=== PATIENT | male | born 2000 | race African-American/Black ===

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

== ENCOUNTER 2021-01-19 23:31 | Emergency (ER) | payer OTHER ==
[2021-01-19 23:43] VITALS: BP 119/73; PULSE 88; RESP 20; TEMP 98
[2021-01-19] MEDS ORDERED: LIDOCAINE 1% INJ 10MG/ML (20 ML MDV) SQ ONE (23:50)
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
--- NOTE | 2021-01-20 00:38 | XR ---
EXAMINATION TYPE: XR finger LT DATE OF EXAM: 01/19/2021 COMPARISON: NONE HISTORY: Middle finger laceration TECHNIQUE: 3 views FINDINGS: There is some deformity in the soft tissues at the end of the little finger consistent with laceration. I see no fracture nor dislocation. Joint spaces are normal. I see no sign of a foreign b nancy. IMPRESSION: Soft tissue deformity. No fracture.
== END 2021-01-20 01:09 | disposition home or self-care (01) ==
LOC: EC 23:31
DX: S61.216A Laceration without foreign body of right little finger without damage to nail, initial encounter (principal); F31.9 Bipolar disorder, unspecified; F17.200 Nicotine dependence, unspecified, uncomplicated; F12.90 Cannabis use, unspecified, uncomplicated; W25.XXXA Contact with sharp glass, initial encounter
CPT/HCPCS: 12002; 99283

== ENCOUNTER → 2021-03-04 | Outpatient (CLI) | payer OTHER ==
--- NOTE | 2021-03-05 02:45 | MR ---
EXAMINATION TYPE: MR hand LT wo con DATE OF EXAM: 03/04/2021 COMPARISON: None HISTORY: Left hand pain, laceration to small and ring finger 1 year ago. Multiplanar multiecho imaging of the left hand without contrast. Metacarpals appear intact. The fingers appear intact. I see no bony destructive process. Joint spaces are fairly normal. The carpal bones are intact. Radiocarpal joint is anatomic. Intercarpal joint spa irene are fairly normal. There is no pathologic fluid collection. There is no evidence of a soft tissue mass. There is some thinning of the flexor tendon of the ring finger and to a lesser extent the little fing er. Flexor tendons of the thumb and index finger and middle finger appear intact. IMPRESSION: Significant thinning of the flexor tendons of the little finger and ring finger consistent with lacer ation probably some partial retraction. No fracture seen. No evidence of any arthritic disease.
== END | disposition home or self-care (01) ==
LOC: RADMRIMAIN 19:07
PROVIDERS: ATTEND Orthopaedic Surgery Hand Surgery
DX: M67.844 Other specified disorders of tendon, left hand (principal)

== ENCOUNTER 2021-05-11 10:17 | Day surgery (SDC) | payer OTHER ==
[2021-05-04 12:34] VITALS: BMI 22.3
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
[2021-05-11] MEDS ORDERED: ONDANSETRON 4 MG/2 ML VIAL ONE ×2 (10:38→11:05)
[2021-05-11] MEDS ORDERED: LACTATED RINGERS 1,000 ML IV ONE ×2 (10:45→12:36)
[2021-05-11] MEDS ORDERED: ONDANSETRON 4 MG/2 ML VIAL IVP ONE (10:45)
[2021-05-11] MEDS ORDERED: DEXAMETHASONE SOD PHOSPHATE 4 MG/ML 1 ML VIAL IVP ONE (10:45)
[2021-05-11] MEDS ORDERED: MIDAZOLAM 2 MG/2 ML VIAL IVP ONE (10:51)
[2021-05-11] MEDS ORDERED: PROPOFOL 10 MG/ML 20 ML VIAL IV ONE (11:05)
[2021-05-11] MEDS ORDERED: ROPIVACAINE 5 MG/ML 30 ML VIAL ONE (11:05)
[2021-05-11] MEDS ORDERED: fentaNYL (PF) 50 MCG/ML 2 ML AMP ONE (11:05)
[2021-05-11] MEDS ORDERED: PHENYLEPHRINE-0.9% NACL SYG 1,000 MCG/10 ML SYRINGE ONE (11:05)
[2021-05-11] MEDS ORDERED: ePHEDrine 50 MG/ML 1 ML AMP ONE (11:05)
[2021-05-11] MEDS ORDERED: LIDOCAINE 1% INJ 10MG/ML (20 ML MDV) ONE (11:05)
[2021-05-11] MEDS ORDERED: DEXAMETHASONE SOD PHOSPHATE 4 MG/ML 1 ML VIAL ONE (11:05)
[2021-05-11] MEDS ORDERED: MIDAZOLAM 2 MG/2 ML VIAL ONE (11:05)
[2021-05-11] MEDS ORDERED: HYDROmorphone (PF) 1 MG/ML ONE (11:05)
[2021-05-11] MEDS ORDERED: BACITRACIN ZINC 500 UNIT/GM OINT 28.4 GM TUBE TOPICAL ONE (13:41)
[2021-05-11 14:04] VITALS: TEMP 97.1
--- NOTE | 2021-05-11 14:20 | P.ANPRN ---
Procedure Note - Anesthesia - Nerve Block Performed Left Supraclavicular Single Time Out Performed: Yes Date of Procedure: 05/11/21 Procedure Start Time: 10:50 Procedure Stop Time: 10:56 Location of Patient: PreOp Indication: Acute Post-Operative Pain, Requested by Surgeon Sedation Type: Sedate with meaningful contact maintained Preparation: Sterile Prep Position: Supine Needle Types: Pajunk Needle Gauge: 21 Ultrasound used to visualize needle placement: Yes Ultrasound used to observe medication spread: Yes Blood Aspirated: No Pain Paresthesia on Injection Noted: No Resistance on Injection: Normal Image Stored and Saved: Yes Events: Uneventful and Well Tolerated (ropi .5% 20cc plus dexamethasone 4mg)
[2021-05-11 14:54] VITALS: RESP 20
[2021-05-11 15:07] VITALS: BP 135/83; PULSE 74
--- NOTE | 2021-05-11 17:53 | P.OP ---
Date of Procedure: 05/11/21 Preoperative Diagnosis: 1.) Left small finger Flexor Digitorum Superficialis tendon laceration, zone 2, chronic. 2.) Left small finger Flexor Digitorum Profundus tendon laceration, zone 2, chronic. 3.) Left ring finger Flexor Digitorum Superficialis tendon laceration, zone 2, chronic. 4.) Left ring finger Flexor Digitorum Profundus tendon laceration, zone 2, chronic. Postoperative Diagnosis: 1.) Left small finger Flexor Digitorum Superficialis tendon laceration, zone 2, chronic. 2.) Left small finger Flexor Digitorum Profundus tendon laceration, zone 2, chronic. 3.) Left ring finger Flexor Digitorum Superficialis tendon laceration, zone 2, chronic. 4.) Left ring finger Flexor Digitorum Profundus tendon laceration, zone 2, chronic. Procedure(s) Performed: 1.) Left small finger flexor tendon excision with implantation of silastic elvin for delayed tendon graft. (91311) 2.) Left small finger flexor tendon isaías reconstruction with autologous tendon graft. (41298) 3.) Left small finger tenolysis, simple, flexor digitorum profundus and superf icialis, palm and finger. (81499) 4.) Left ring finger flexor tendon excision with implantation of silastic elvin for delayed tendon graft. (03111) 5.) Left ring finger flexor tendon isaías reconstruction with autologous tendon graft. (29534) 6.) Left ring finger tenolysis, simple, flexor digitorum profundus and superficialis, palm and finger. ([id number]) Implants: Servoy silastic flexor tendon elvin, 4mm, left ring and small finger fingers Anesthesia: DEAN, regional Surgeon: Kahlil Huerta Software Quality Assurance Analyst #1: Keenan Ray Estimated Blood Loss (ml): 10 Pathology: none sent Condition: stable Disposition: PACU Description of Procedure: This is a 20 year old male who sustained complex zone 2 flexor tendon lacerations in January of 2020 to his left ring and small fingers. He never sought treatment at the time of his injury but due to continued inability to flex the digits presented 1.5 years after his injury. He presents today for stage 1 flexor tendon reconstruction procedures for his left ring and small finger zone 2 FDP/FDS tendon laceration Risks and benefits of surgery were discussed with the patient including bleeding, damage to surrounding tissue, infection, need for further surgery, allergic reaction to implants, stiffness as well as risks of anesthesia including pulmonary embolism and even and the patient wished to proceed with surgical intervention. The patient was seen in the pre-operative area by myself. Consent and H&P were completed and updated. The correct extremity was marked in the pre-operative area by myself and all other questions were answered. Operative Narrative: The patient was brought to the operating room by the department of anesthesia. They remained on the portable stretcher and a rolling hand table was brought to the side of the operative extremity. Pre-operative time out was performed indicating the correct patient, procedure and laterality. All in the room agreed. Pre-operative antibiotics were given prior to skin incision. The patient was then drifted off to sleep by the department of anesthesia. He received a regional block by the department of anesthesia in the operative extre mit. A non-sterile tourniquet was then applied to the operative extremity and the left upper extremity was then prepped and draped in normal sterile fashion. The operative extremity was then exsanguinated with an esmarch bandage and the tourniquet was inflated to 250mmHg. 15 blade scalpel was utilized to make volar Adeel incisions from the mid portion of the distal phalanx distally and carried proximally to the level of the palm starting with the ring finger. Blunt dissection was taken down through subcutaneous tissues and the radial and ulnar digital neurovascular bundles were identified and were intact throughout their entire course from palm to finger tip and protected throughout the procedure. Upon further dissection there was extensive scarring of the majority of the isaías system with complete collapse of the A2, C1, A3, C2, A4 and C3 pulleys. The A1 and A5 pulleys appeared to be intact but still with extensive scar tissue present at distal and proximal portions. Dissection was carried proximally into the palm and the FDP/FDS tendons of the ring finger was extensively scared together at the level of the A1 isaías. Tenolysis of the FDP/FDS tendons at the level of the palm was performed and the two tendons were then able to be after excision of scar tissue. Non-viable tendon ends were sharply excised and the proximal portions of the FDP/FDS tendons in the palm, 1.5cm distal to the FDP lumbrical origin, were then sutured together creating a loop using 4-0 ethibond suture with a modified Fuentes core suture technique to perform the stage 1 portion of the flexor tendon reconstruction using the Modified Jerilyn-Olive Technique for future use of tendon autograft during the stage 2 procedure. Nonviable and scarred pulleys were excised sharply with 15 blade scalpel. A 4mm sizer [employer] flexible silastic elvin was then sized to match the FDS tendon, the 4mm size fit best. The actual 4mm implant was then inserted on the the debrided flexor tendon bed. The distal stump of the FDP tendon was identified and tenolysis was performed at the level of the distal phalanx to free the tendon from the surrounding scar tissue. 4-0 prolene was used in a figure of 8 fashion to attach the distal silastic elvin to the distal stump of FDP. The FDS slips were then identified and harvested for flexor isaías reconstruction. Two slips of the FDS were freed from surrounding scar tissue and then crossed over the silastic implant and sutured two the fibro-osseus floor with appropriate tension using 4- 0 ethibond suture. This was performed at the level of the previous A2 and A4 pulleys overlying the proximal phalanx and middle phalanx, respectively. The proximal end of the silastic implant was then cut at the level of the previous tendon loop. Tension was pulled proximally and the finger flexed without bowstring. Attention was then brought to the small finger. 15 blade scalpel was utilized to make volar Adeel incisions from the mid portion of the distal phalanx distally and carried proximally to the level of the palm in line with the small finger. Blunt dissection was taken down through subcutaneous tissues and the radial and ulnar digital neurovascular bundles were identified and were intact throughout their entire course from palm to finger tip and protected throughout the procedure. Upon further dissection there was extensive scarring of the majority of the isaías system with complete collapse of the A2, C1, A3, C2, A4 and C3 pulleys. The A1 and A5 pulleys appeared to be intact but with extensive scar tissue present at distal and proximal portions. Dissection was carried proximally into the palm and the FDP/FDS tendons of the small finger were extensively scared together at the level of the A1 isaías. Tenolysis of the FDP/FDS tendons at the level of the palm was performed and the two tendons were then able to be after excision of scar tissue. Non-viable tendon ends were sharply excised and the proximal portions of the FDP/FDS tendons in the palm, 1.5cm distal to the FDP lumbrical origin, were then sutured together creating a loop using 4-0 ethibond suture with a modified Fuentes core suture technique to perform the stage 1 portion of the flexor tendon reconstruction using the Modified Viria-Olive Technique for future use of tendon autograft during the stage 2 procedure. Nonviable and scarred pulleys were excised sharply with 15 blade scalpel. A 4mm sizer [employer] flexible silastic elvin was then sized to match the FDS tendon, the 4mm size fit best. The actual 4mm implant was then inserted on the the debrided flexor tendon bed and tunneled under the A1 and A5 pulleys after further dilation of the pulleys was performed with a freer. The distal stump of the FDP tendon was identified and tenolysis was performed at the level of the distal phalanx to free the tendon from the surrounding scar tissue. 4-0 prolene was used in a figure of 8 fashion to attach the distal silastic elvin to the distal stump of FDP. The FDS slips were then identified and harvested for flexor isaías reconstruction. Two slips of the FDS were freed from surrounding scar tissue and then crossed over the silastic implant and sutured two the fibro-osseus floor with appropriate tension using 4-0 ethibond suture. This was performed at the level of the previous A2 and A4 pulleys overlying the proximal phalanx and middle phalanx, respectively. In addition to recreating the A2&4 pulleys, there was abundant volar plate present at the level of the PIP joint, a slit both proximal and distal to the PIP joint was made in the volar plate with 15 blade scalpel and the silastic elvin was tunneled through the slits, recreating the A3 isaías utilizing the Karev technique. The proximal end of the silastic implant was then cut at the level of the previous tendon loop. Tension was pulled proximally and the finger flexed without bowstring, this was confirmed under live fluoroscopy. Tourniquet was let down and hemostasis was achieved, both digits and all skin flaps had immediate perfusion. The wound was then copiously irrigated with sterile saline. Wounds were closed with interrupted and running 4-0 nylon sutures. Sterile dressing consisting of adaptic, bacitracin, 4x4s, cast padding and a dorsal blocking splint with the wrist and MCP joints in slight flexion and IP joints extended. The patient was then woken by the department of anesthesia and transferred to PACU in stable condition. Post op plan: Patient will be seen post operatively in 3-5 days. We will start hand therapy within the next week with gentle passive ROM of the ring and small digits to avoid contracture. We will remove sutures at 10-14 days. He will require a dorsal blocking splint for the next 2-3 weeks during the day then t ransition to just night time splinting until stage 2 is performed. We will plan for Stage 2 of the modified Paneva-Olive flexor tendon reconstruction procedure with silastic elvin excision and advancement of forearm FDS tendon for autograft for both digits in 8 to 10 weeks followed again by rigorous hand therapy. Kahlil Huerta D.O. Orthopedic Hand/Upper Extremity Surgeon
== END 2021-05-11 15:34 | disposition home or self-care (01) ==
LOC: OR 10:17
PROVIDERS: ATTEND Orthopaedic Surgery Hand Surgery
DX: S66.127A Laceration of flexor muscle, fascia and tendon of left little finger at wrist and hand level, initial encounter (principal); S66.125A Laceration of flexor muscle, fascia and tendon of left ring finger at wrist and hand level, initial encounter; W45.8XXA Other foreign body or object entering through skin, initial encounter; F31.9 Bipolar disorder, unspecified; F90.9 Attention-deficit hyperactivity disorder, unspecified type
CPT/HCPCS: 26502 ×2; 26442 ×2; 64415; 76942; C1713; J2250; J1100; J2405; J0690; J2001; J3010; J1170; J2795; J2370; J2704

== ENCOUNTER 2021-08-04 08:53 | Day surgery (SDC) | payer OTHER ==
[2021-08-03 10:58] VITALS: BMI 23.1
--- NOTE | 2021-08-03 19:34 | P.HPOR ---
History of Present Illness H&P Date: 08/03/21 Chief Complaint: Left small and ring finger flexor tendon lacerations, chronic Subjective: This is a 20 year old male that presents today for a post-operative visit after undergoing left small and ring finger stage 1 flexor tendon reconstruction with isaías reconstruction and silastic elvin implant placement on 05/11/21. He is now 2 months out from his stage 1 surgery and has had no issues since his last visit and has been working with therapy on ROM. He has no pain and is regaining near full range of motion in the ring and small finger PIP and MCP joints. Physical Examination: LUE: AIN/PIN/Radial/Ulnar/Median motor intact. Radial/Ulnar/Median SILT. 2+/4 Radial/Ulnar pulses palpated. volar Xiomy incisions well healed with no signs of any wound dehiscence or infection. Passive range of motion of PIP and MCP joints of ring and small finger are 90. Impression: 1.) S/P Left small and ring finger stage 1 of 2 flexor tendon reconstruction with isaías reconstruction and silastic elvin implant placement. Plan: Diagnosis and treatment options and were discussed with the patient. He is now 2 months out from stage I and has regained near full passive range of motion of the ring and small finger. In the next 3-4 weeks, I recommend proceeding with stage II of the flexor tendon reconstruction process consisting of advancement of the previously looped FDS and FDP stumps with detachment at the forearm and distal autografting with removal of the Silastic implants. We discussed the postoperative course will likely require a short period of immobilization foll owed by intensive hand occupational therapy to regain motion. He is agreeable with this plan of action and surgery will be scheduled in the future. -Kahlil Huerta DO Orthopedic Hand/Upper Extremity Surgeon Past Medical History Past Medical History: No Reported History Additional Past Medical History / Comment(s): STATES UNABLE TO MOVE LEFT HAND "PINKY AND RING FINGER". History of Any Multi-Drug Resistant Organisms: None Reported Past Surgical History: Orthopedic Surgery Additional Past Surgical History / Comment(s): RIGHT WRIST FRACTURE SURGERY. Past Anesthesia/Blood Transfusion Reactions: No Reported Reaction Past Psychological History: ADD/ADHD, Anxiety, Bipolar Additional Psychological History / Comment(s): ADHD. Smoking Status: Vaper Past Alcohol Use History: Occasional Past Drug Use History: Marijuana Additional Drug Use History / Comment(s): DAILY MARIJUANA USE. INSTRUCTED NO USE 24 HRS PRIOR TO PROCEDURE. - Past Family History Mother Family Medical History: No Reported History Medications and Allergies Home Medications Medication Instructions Recorded Confirmed Type No Known Home Medications 08/03/21 08/03/21 History Allergies Allergy/AdvReac Type Severity Reaction Status Date / Time No Known Allergies Allergy Verified 08/03/21 10:38 Physical Examination Osteopathic Statement: *. No significant issues noted on an osteopathic structural exam other than those noted in the History and Physical/Consult.
[~2021-08-04 08:53] MED LIST: LACTATED RINGERS 1,000 ML IV SCH; LIDOCAINE 1% (10MG/ML) FOR IV START INTRADERMA PRN; ONDANSETRON 4 MG/2 ML VIAL IVP ONE
[2021-08-04] MEDS ORDERED: SUCCINYLCHOLINE CHLORIDE 100 MG/5 ML SYR IV ONE (09:50)
[2021-08-04] MEDS ORDERED: MIDAZOLAM 2 MG/2 ML VIAL ONE (09:50)
[2021-08-04] MEDS ORDERED: LACTATED RINGERS 1,000 ML IV ONE ×2 (09:50→13:08)
[2021-08-04] MEDS ORDERED: LIDOCAINE 1% INJ 10MG/ML (20 ML MDV) ONE (09:50)
[2021-08-04] MEDS ORDERED: PROPOFOL 10 MG/ML 20 ML VIAL IV ONE (09:50)
[2021-08-04] MEDS ORDERED: fentaNYL (PF) 50 MCG/ML 2 ML AMP ONE (09:50)
[2021-08-04] MEDS ORDERED: LIDOCAINE 0.5% (PF) 5 MG/ML (50 ML SDV) SQ ONE ×2 (10:19)
[2021-08-04] MEDS ORDERED: LIDOCAINE 2% (PF) 20 MG/ML 10 ML AMP SQ ONE ×2 (10:19)
[2021-08-04 13:25] VITALS: RESP 16; TEMP 98.1
[2021-08-04] MEDS: HYDROmorphone 0.5 MG/0.5 ML SYRINGE IVP PRN ×2 (13:40→13:49)
[2021-08-04] MEDS ORDERED: ONDANSETRON 4 MG/2 ML VIAL IVP ONE (13:50)
[2021-08-04] MEDS ORDERED: hydrALAZINE HCL 20 MG/ML 1 ML VIAL IVP ONE (13:54)
[2021-08-04] MEDS ORDERED: HYDROcodone/APAP 5-325MG 1 EACH TAB ONE (14:33)
[2021-08-04 14:54] VITALS: BP 155/87; PULSE 81
--- NOTE | 2021-08-05 11:51 | P.OP ---
Date of Procedure: 08/04/21 Preoperative Diagnosis: 1.) Left small finger zone two flexor digitorum superficialis laceration, chronic. 2.) Left ring finger zone two flexor digitorum superficialis laceration, chronic. 3.) Left small finger zone two flexor digitorum profundus laceration, chronic. 4.) Left ring finger zone two flexor digitorum profundus laceration, chronic. Postoperative Diagnosis: 1.) Left small finger zone two flexor digitorum superficialis laceration, chronic. 2.) Left ring finger zone two flexor digitorum superficialis laceration, chronic. 3.) Left small finger zone two flexor digitorum profundus laceration, chronic. 4.) Left ring finger zone two flexor digitorum profundus laceration, chronic. Procedure(s) Performed: 1.) Left ring finger zone 2 (no [place]) flexor tendon reconstruction with advancement of free autograft with silastic implant removal. (15975) 2.) Left ring finger flexor tendon tenolysis, palm and finger (89970) 1.) Left small finger zone 2 (no [place]) flexor tendon reconstruction with advancement of free autograft with silastic implant removal.(11114) 2.) Left small finger flexor tendon tenolysis, palm and finger. ([id number]) Implants: [employer] NanoCorkscrew FT suture anchors x 3 Anesthesia: PINKYA Surgeon: Kahlil Huerta Well Control Instructor #1: Abdifatah Raya Estimated Blood Loss (ml): 30 Pathology: none sent Condition: stable Disposition: PACU Description of Procedure: This is a 20 year old male with a history of chronic left ring and small finger zone 2 flexor tendon lacerations who presents today for stage 2 of his flexor tendon reconstruction procedure for the ring and small fingers after having comp leted stage 1 on 05/11/21 with silastic elvin implantation and isaías reconstruction. Risks and benefits of surgery were discussed with the patient including bleeding, damage to surrounding tissue, infection, need for further surgery as well as risks of anesthesia including pulmonary embolism and even and the patient wished to proceed with surgical intervention. The patient was seen in the pre-operative area by myself. Consent and H&P were completed and updated. The correct extremity was marked in the pre-operative area by myself and all other questions were answered. Operative Narrative: The patient was brought to the operating room by the department of anesthesia. They remained on the portable stretcher and a rolling hand table was brought to the side of the operative extremity. Pre-operative time out was performed indicating the correct patient, procedure and laterality. All in the room agreed. Pre-operative antibiotics were given prior to skin incision. The patient was then drifted off to sleep by the department of anesthesia. A nonsterile tourniquet was then applied to the operative extremity and the left upper extremity was then prepped and draped in normal sterile fashion. The operative extremity was the exsanguinated with an esmarch bandage and the tourniquet was inflated to 250mmHg. 15 blade scalpel was used to incise skin in the proximal palm through previous scars from his stage 1 procedure in a Xiomy type fashion. Blunt dissections was taken down taking care to protect vital neurovascular structures. The loop of the previously sutured ends of the FDP and FDS tendons were successfully identified for both the ring and small finger. Surrounding adhesions were released and tenolysis was performed of both loops. Solid tendon end to end repair was appreciated. A longitudinal incision was then made in the mid forearm region. Blunt dissection was taken down through subcutaneous tissues and the volar forearm fascia was incised in line with the skin incision. FDS tendons of both the ring and small fingers were correctly identified and isolated by pulling on the tendons through the palmar surgical site. Decision was made to have the ring and small finger FDP tendons be the new motor for flexion of the ring and small digits. The FDS tendons of the ring and small were then sharply incised at the musculotendinous junction. Tractions was pulled on the loops through the palmar incision and the FDS tendons of the ring and small were successfully delivered distally through the palmar incision tunneled underneath the skin and carpal tunnel. The distal edges of the FDS tendons were then cleaned and muscle belly was removed. The proximal portions of previously placed silastic rods from the stage one procedure were identified and the reflected FDS tendons of the ring and small fingers were sutured to the proximal ends of the silastic rods with 4-0 prolene in a horizontal mattress fashion. Xiomy type incisions were then made at the distal portion of the ring and small fingers through previous scars from stage 1. Blunt dissection was taken down through subcutaneous tissues taking care to protect the trifurcation of the digital nerve branches. The prolene sutures place in stage one to attach the distal portion of the silastic elvin to the FDP stump were identified and cut and tenolysis of FDP distal stumps were performed to remove all surrounding scar tissue and nonviable FDP tendon. The silastic rods were then pulled distally and the FDS tendons were tunneled through the reconstructed isaías system subcutane ously and delivered through the distal fingertip incisions. Silastic rods were then detached from the distal ends of the FDS tendons. The volar surfaces of the distal phalanx were then drilled with the [employer] FT guide pins to the laser line aimed slightly proximal but extra-articular. This was done for both the radial and ulnar portions of the ring finger distal phalanx. Jessi Corkscrew anchors were then inserted and advanced, the ring ring was then brought into flexion and the 3-0 fiberwire suture attached to the anchors was passed through the FDS tendon stump in a modified Fuentes core suture fashion and tied. After complete tying and initial tensioning it was noticed that the ulnar corkscrew anchor was advanced too far and was prominent dorsally, also the resting posture of the ring finger was too lax which would have resulted in a Quadriga effect, therefore decision to re-do tensioning was made and the ulnar corkscrew anchor was excised. Additional length off of the FDS tendon was taken to achieve more tension and a new Nanocorkscrew anchor was inserted that was not palpated dorsally. The 3-0 Fiber wire was then again attached to the stump in a modified Fuentes core suture fashion and tied off. The resting posture of the digits was now anatomic and normal cascade was appreciated. The same procedure was done with the small finger. A single jessi corkscrew anchor was inserted centrally in the distal phalanx due to it's small size and appropriate tensioning was achieved and core suture was used to attach the FDS stump down to bone. Normal resting posture of the hand was now achieved in all digits with no evidence of Quadriga. The wounds were then copiously irrigated. The forearm wound was closed with interrupted 4-0 monocryl suture followed by 4-0 nylon koehler ture. The palmar wounds were closed with 4-0 nylon suture. 20cc total of 0.5% bupivicaine was injected near the forearm incision and median and ulnar nerve blocks were performed. Tourniquet was let down and the fingers had immediate perfusion. A large bulky dorsal blocking splint with adaptic, bacitracin, cast padding and plaster was applied. The patient was then woken by the department of anesthesia and transferred to PACU in stable condition. Post op plan: The patient will remain in the dorsal blocking splint for 10 days. He will be seen in office at that time and sutures can be removed and referral to hand therapy will be given to start early passive flexion and active extension in the confines of a 30 degree dorsal blocking splint to protect the repair. Active finger flexion and full extension should not be initiated until 4 weeks post operatively to allow for distal tendon healing. Kahlil Huerta D.O. Orthopedic Hand/Upper Extremity Surgeon
== END 2021-08-04 15:32 | disposition home or self-care (01) ==
LOC: OR 08:53
PROVIDERS: ATTEND Orthopaedic Surgery Hand Surgery
DX: S66.127A Laceration of flexor muscle, fascia and tendon of left little finger at wrist and hand level, initial encounter (principal); S66.125A Laceration of flexor muscle, fascia and tendon of left ring finger at wrist and hand level, initial encounter; F41.9 Anxiety disorder, unspecified; F31.9 Bipolar disorder, unspecified; F90.9 Attention-deficit hyperactivity disorder, unspecified type
CPT/HCPCS: 26358 ×2; 26442 ×2; C1713; J2250; J0360; J2001 ×3; J2405; J0690; J3010; J0330; J2704; J1170

== ENCOUNTER 2021-12-28 13:20 | Day surgery (SDC) | payer OTHER ==
[2021-12-27 11:17] VITALS: BMI 22.3
--- NOTE | 2021-12-27 22:11 | P.HPOR ---
History of Present Illness H&P Date: 12/27/21 Chief Complaint: Left small finger irritable orthopedic implant Subjective: This is a 20 year old male that presents today for a post-operative visit after undergoing left small and ring finger stage 2 flexor tendon reconstruction with silastic elvin removal and advancement of ring and small finger tendon autograft and tenolysis on 08/04/21. Patient removed his splint at 5 days post up despite instructions to keep the splint intact and began using the hand as tolerated and was unable to go to hand therapy for his regular appointments. He is now approaching 5 months from his last surgery and has had no issues until 2 weeks prior. He noticed one of the suture anchors in the ring finger was spitting out at the tip of the finger and he noticed pain in the area. He also has noticed one of the small finger suture anchors starting to spit out the dorsal aspect of the small finger. Physical Examination: LUE: AIN/PIN/Radial/Ulnar/Median motor intact. Radial/Ulnar/Median SILT. 2+/4 Radial/Ulnar pulses palpated. Volar Xiomy incisions well healed. Passive range of motion of PIP and MCP joints of ring and small finger are 85. [place] neck deformities present of ring and small fingers. That are passively correctable. Once passively corrected he is able to hold PIP and DIP joints in flexion. Suture anchor is piercing very tip of nail plate at the level of the eponychium of the ring finger. Small finger suture anchor is starting to tent dorsal skin. Imaging: X-rays of left small finger demonstrate suture anchor displacement through dorsal cortex of the distal phalanx, 50% displacement. X-rays of the left ring finger demonstrate one intact suture anchor and one displacement suture anchor into the dorsal soft tissues of the tip of the small finger, partially protruding through skin. Impression: 1.) S/P Left small and ring finger stage 2 flexor tendon reconstruction with tendon autograft 2.) Left small finger and ring finger irritable orthopedic implant (suture anchor) Plan: Diagnosis and treatment options and were discussed with the patient. We discussed his suture anchors have dislodged in the ring and small finger. The ring finger suture anchor is 80% out of the skin and is amendable to removal in office, he is agreeable. The ring finger was cleaned with alcohol swab and hemostat was utilized to remove the displaced suture anchor. A small amount of purulence was expressed from underneath the nail plate, less than 1cc. The wound was the dressed and band-aid was placed. The small finger suture anchor is still partially implanted into the bone of the distal phalanx which will require surgery to remove. Risks and benefits of surgery including bleeding, infection, damage to surrounding tissue, need for further surgery, residual numbness were discussed and the patient wished to go forward with surgery. 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 -Kahlil Huerta DO Orthopedic Hand/Upper Extremity Surgeon Past Medical History Past Medical History: No Reported History Additional Past Medical History / Comment(s): hx two tendons injured left hand History of Any Multi-Drug Resistant Organisms: None Reported Past Surgical History: Orthopedic Surgery Additional Past Surgical History / Comment(s): RIGHT WRIST FRACTURE SURGERY. tendon surgery rt hand 08/04/21 with hardware Past Anesthesia/Blood Transfusion Reactions: No Reported Reaction Smoking Status: Former smoker, Vaper - Past Family History Mother Family Medical History: No Reported History Medications and Allergies Home Medications Medication Instructions Recorded Confirmed Type No Known Home Medications 12/27/21 12/27/21 History Allergies Allergy/AdvReac Type Severity Reaction Status Date / Time No Known Allergies Allergy Verified 12/27/21 11:10 Physical Examination Osteopathic Statement: *. No significant issues noted on an osteopathic structural exam other than those noted in the History and Physical/Consult.
[~2021-12-28 13:20] MED LIST changes: -LIDOCAINE 1% (10MG/ML) FOR IV START INTRADERMA PRN; -ONDANSETRON 4 MG/2 ML VIAL IVP ONE; +ONDANSETRON 4 MG/2 ML VIAL IVP PRN; +fentaNYL (PF) 50 MCG/ML 2 ML AMP IV PRN
[2021-12-28 13:35] VITALS: TEMP 98
[2021-12-28] MEDS ORDERED: LACTATED RINGERS 1,000 ML IV ONE (13:45)
[2021-12-28] MEDS ORDERED: MIDAZOLAM 2 MG/2 ML VIAL ONE (14:15)
[2021-12-28] MEDS ORDERED: PROPOFOL 10 MG/ML 20 ML VIAL IV ONE (14:15)
[2021-12-28] MEDS ORDERED: fentaNYL (PF) 50 MCG/ML 2 ML AMP ONE (14:15)
[2021-12-28] MEDS ORDERED: LIDOCAINE 1% INJ 10MG/ML (20 ML MDV) SQ ONE (14:27)
[2021-12-28] MEDS ORDERED: BUPIVACAINE (PF) 0.5% 30 ML VIAL MISCELLANE ONE (14:27)
[2021-12-28 15:30] VITALS: BP 112/73; PULSE 51; RESP 20
--- NOTE | 2021-12-28 17:22 | P.OP ---
Date of Procedure: 12/28/21 Preoperative Diagnosis: Left small finger irritable orthopedic implant (suture anchor) Postoperative Diagnosis: Left small finger irritable orthopedic implant (suture anchor) Procedure(s) Performed: 1.) Left small finger removal of deep implant (suture anchor in bone) Anesthesia: MAC Surgeon: Kahlil Huerta Music Librarian #1: Keenan Ray Estimated Blood Loss (ml): 0 Pathology: none sent Condition: stable Disposition: PACU Description of Procedure: This is a 21 year old male who underwent staged flexor tendon reconstruction with isaías reconstructions due to left chronic zone 2 flexor tendon lacerations of the ring and small finger in July of 2020. Patient was medically non compliant with post operative instructions leading to early hardware failure and graft failure after taking his splint off on post op day 2 and using the hand as tolerated. Over the past several weeks he has noticed the small finger suture anchor begin to tent the dorsal skin and presents today for removal of implant. Risks and benefits of surgery were discussed with the patient including bleeding, damage to surrounding tissue, infection, need for further surgery as well as risks of anesthesia including pulmonary embolism and even and the patient wished to proceed with surgical intervention. The patient was seen in the pre-operative area by myself. Consent and H&P were completed and updated. The correct extremity was marked in the pre-operative area by myself and all other questions were answered. Operative Narrative: The patient was brought to the operating room by the department of anesthesia. They remained on the portable stretcher and a rolling hand table was brought to the side of the operative extremity. Pre-operative time out was performed indicating the correct patient, procedure and laterality. All in the room agreed. Pre-operative antibiotics were given prior to skin incision. The patient was then drifted off to sleep by the department of anesthesia. Digital block was performed with 7cc's of 0.5% Lidocaine and 1% lidocaine in a 50:50 mixture. A nonsterile tourniquet was then applied to the operative extremity and the left upper extremity was then prepped and draped in normal sterile fashion. Pre op antibiotics were given. The operative extremity was then exsanguinated with an esmarch bandage and the tourniquet was inflated to 250mmHg. Longitudinal incision was made of over the distal aspect of the dorsal surface of the left small finger at the level of the distal phalanx. Blunt dissection was taken down through subcutaneous tissues to reveal the dislodged suture anchor. Hemostat was then used to clamp onto the suture anchor the the suture anchor was removed from bone with ease. Mini C-arm confirmed removal of imlant in the small finger and a stable implant present in the ring finger. The wound was the irrigated and closed with 4-0 nylon suture. Soft dressing consisting of 4x4s and coban was applied. Tourniquet was let down and the hand had immediate perfusion. The patient was then woken by the department of anesthesia and transferred to PACU in stable condition. Keenan LINDSAY was present for the case to assist in retraction and implant removal. Kahlil Huerta D.O. Orthopedic Hand/Upper Extremity Surgeon
== END 2021-12-28 16:11 | disposition home or self-care (01) ==
LOC: OR 13:20
PROVIDERS: ATTEND Orthopaedic Surgery Hand Surgery
DX: T84.84XA Pain due to internal orthopedic prosthetic devices, implants and grafts, initial encounter (principal); Z47.2 Encounter for removal of internal fixation device; M20.039 Swan-neck deformity of unspecified finger(s); F12.90 Cannabis use, unspecified, uncomplicated; Z98.890 Other specified postprocedural states; Z47.89 Encounter for other orthopedic aftercare; Z87.891 Personal history of nicotine dependence
CPT/HCPCS: 20680; J2250; J0690; J2001; J3010; J2704

== ENCOUNTER 2022-09-04 15:35 | Emergency (ER) | payer OTHER ==
[2022-09-04 15:46] VITALS: BP 120/82; PULSE 82; RESP 17; TEMP 97.7
[2022-09-04] MEDS ORDERED: KETOROLAC 15 MG/ML 1 ML VIAL IM STA (16:20)
[2022-09-04 16:39] LABS: Appearance,Urine Clear (Clear); Bilirubin,Urine Negative (Negative); Blood,Urine Negative (Negative); Color,Urine Yellow; Glucose,Urine (UA) Negative (Negative); Ketones,Urine Negative (Negative); Leukocyte Esterase,Urine Negative (Negative); Nitrite,Urine Negative (Negative); PH, Urine 7.5 (5.0-8.0); Protein,Urine Negative (Negative); Specific Gravity,Urine 1.026 (1.001-1.035); Urobilinogen,Urine <2.0 mg/dL (<2.0)
--- NOTE | 2022-09-04 16:40 | XR ---
EXAMINATION TYPE: XR chest 2V DATE OF EXAM: 09/04/2022 COMPARISON: None HISTORY: 21 year-old male left rib pain TECHNIQUE: PA and lateral views FINDINGS: The cardiomediastinal silhouette, aorta, and pulmonary vasculature are within normal limits. Lungs an d pleural spaces are clear. IMPRESSION: No acute cardiopulmonary process.
--- NOTE | 2022-09-04 17:09 | ED ---
General Adult HPI - General Chief complaint: Abdominal Pain Stated complaint: left side pain Time Seen by Provider: 09/04/22 16:03 Source: patient, RN notes reviewed Mode of arrival: ambulatory Limitations: no limitations - History of Present Illness Initial comments: 21-year-old -[place] male with no significant past medical history presents to the emergency department with a chief complaint of left rib pain that had sudden onset earlier today. He denies any trauma or injury. He describes the pain as sharp and constant. She has not taken anything for his symptoms. He denies ever having this before he denies any dizziness, lightheaded, fever, cough, chest pain, shortness of breath, nausea, vomiting - Related Data Home Medications Medication Instructions Recorded Confirmed No Known Home Medications 12/27/21 09/04/22 Allergies Allergy/AdvReac Type Severity Reaction Status Date / Time No Known Allergies Allergy Verified 09/04/22 16:59 Review of Systems ROS Statement: Those systems with pertinent positive or pertinent negative responses have been documented in the HPI. ROS Other: All systems not noted in ROS Statement are negative. Past Medical History Past Medical History: No Reported History Additional Past Medical History / Comment(s): hx two tendons injured left hand History of Any Multi-Drug Resistant Organisms: None Reported Past Surgical History: Orthopedic Surgery Additional Past Surgical History / Comment(s): RIGHT WRIST FRACTURE SURGERY. tendon surgery rt hand 08/04/21 with hardware Past Anesthesia/Blood Transfusion Reactions: No Reported Reaction Past Psychological History: ADD/ADHD Smoking Status: Former smoker, Vaper Past Alcohol Use History: Rare Past Drug Use History: Marijuana - Past Family History Mother Family Medical History: No Reported History General Exam - General Exam Comments Initial Comments: General: Alert, in no acute distress Head: atraumatic normocephalic. Eyes PERRL, EOMI intact, mucous membranes moist Respiratory: Lungs clear to auscultation bilaterally Cardiovascular: Heart rate regular rate and rhythm Abdominal: Soft without guarding or rebound Extremities: Normal inspection with full range of motion and normal capillary refill Neuroogic: alert and oriented 3, CN II-XII intact, able to ambulate with steady gait Skin: warm dry and intact with normal color Limitations: no limitations Course Vital Signs 09/04/22 15:42 Temperature 97.7 F Pulse Rate 82 Respiratory 17 Rate Blood Pressure 120/82 O2 Sat by Pulse 100 Oximetry EKG Findings - EKG Comments: EKG Findings:: I interpreted the following: EKG performed at 16:41. Rate 61 bpm normal sinus rhythm IN interval 156, QRS duration 96, QT/QTC 373/375 Medical Decision Making - Medical Decision Making Was pt. sent in by a medical professional or institution (, NEFTALI, ELECTRIC DOLLY OPERATOR, urgent care, hospital, or [facility]...) When possible be specific @ -No Did you speak to anyone other than the patient for history (EMS, parent, family, police, friend...)? What history was obtained from this source @ -No Did you review nursing and triage notes (agree or disagree)? Why? @ -I reviewed and agree with nursing and triage notes Were old charts reviewed (outside hosp., previous admission, EMS record, old EKG, old radiological studies, urgent care reports/EKG's, [facility] records)? Report findings @ -No old charts were reviewed Differential Diagnosis (chest pain, altered mental status, abdominal pain women, abdominal pain men, vaginal bleeding, weakness, fever, dyspnea, syncope, headache, dizziness, GI bleed, back pain, seizure, CVA, palpatations, mental health, musculoskeletal)? @ -not applicable EKG interpreted by me (3pts min.). @ -As above X-rays interpreted by me (1pt min.). @ -X-ray negative for any evidence of fracture or acute dislocation CT interpreted by me (1pt min.). @ -None done U/S interpreted by me (1pt. min.). @ -None done What testing was considered but not performed or refused? (CT, X-rays, U/S, labs)? Why? @ -None What meds were considered but not given or refused? Why? @ -None Did you discuss the management of the patient with other professionals (professionals i.e. NEFTALI Dwyer, ELECTRIC DOLLY OPERATOR, lab, RT, psych nurse, hospice social worker, mva still operator, teacher, wildlife officer, medical case worker)? Give summary @ -No Was smoking cessation discussed for >3mins.? @ -No Was critical care preformed (if so, how long)? @ -No Were there social determinants of health that impacted care today? How? (Homelessness, low income, unemployed, alcoholism, drug addiction, transportation, low edu. Level, literacy, decrease access to med. care, alf, rehab)? @ -No Was there de-escalation of care discussed even if they declined (Discuss DNR or withdrawal of care, Hospice)? DNR status @ -No What co-morbidities impacted this encounter? (DM, HTN, Smoking, COPD, CAD, Cancer, CVA, ARF, Chemo, Hep., AIDS, mental health diagnosis, sleep apnea, morbid obesity)? @ -None Was patient admitted / discharged? Hospital course, mention meds given and route, prescriptions, significant lab abnormalities, going to OR and other pertinent info. @ -Discharged. This is a 21-year-old -[place] male who presents to the emergency department with a chief complaint of left rib pain. Patient had a thorough history and physical exam performed while in the ED. Physical exam reveals heart rate regular rate and rhythm, lungs clear to auscultation bilaterally abdomen is soft and nontender. ribs are nontender, no crepitus noted equal chest rise bilateral. Patient had lab work and imaging performed on the ED which were essentially unremarkable. I discussed the results in detail with the patient verbalized understanding and all questions were addressed He was given Toradol with symptomatic relief. He was encouraged to follow up with his PCP in 1-2 days. Return precautions were discussed at length. Patient discharged in stable condition. Case discussed with Dr. Chamberlain, [facility] who agrees with plan of care Undiagnosed new problem with uncertain prognosis? @ -No Drug Therapy requiring intensive monitoring for toxicity (Heparin, Nitro, Insulin, Cardizem)? @ -No Were any procedures done? @ -No Diagnosis/symptom? @ -L Rib Pain Acute, or Chronic, or Acute on Chronic? @ -acute Uncomplicated (without systemic symptoms) or Complicated (systemic symptoms)? @ -uncomplicated Side effects of treatment? @ -No Exacerbation, Progression, or Severe Exacerbation? @ -No Poses a threat to life or bodily function? How? (Chest pain, [place], DC, pneumonia, PE, COPD, DKA, ARF, appy, cholecystitis, CVA, Diverticulitis, Homicidal, Suicidal, threat to staff... and all critical care pts) @ -low likelihood ] - Lab Data Lab Results 09/04/22 Range/Units 16:23 Urine Color Yellow Urine Appearance Clear (Clear) Urine pH 7.5 (5.0-8.0) Ur Specific [place] 1.026 (1.001-1.035) Urine Protein Negative (Negative) Urine Glucose (UA) Negative (Negative) Urine Ketones Negative (Negative) Urine Blood Negative (Negative) Urine Nitrite Negative (Negative) Urine Bilirubin Negative (Negative) Urine Urobilinogen <2.0 (<2.0) mg/dL Ur Leukocyte Esterase Negative (Negative) Disposition Clinical Impression: Rib pain on left side Disposition: HOME SELF-CARE Condition: Stable Instructions (If sedation given, give patient instructions): Costochondritis (ED) Additional Instructions: These return to the nearest emergency department symptoms worsen or persist Is patient prescribed a controlled substance at d/c from ED?: No Referrals: Sam Byrnes MD [Primary Care Provider] - 1-2 days Time of Disposition: 17:08
== END 2022-09-04 17:26 | disposition home or self-care (01) ==
LOC: EC 15:35
DX: R07.81 Pleurodynia (principal); F17.290 Nicotine dependence, other tobacco product, uncomplicated; F12.90 Cannabis use, unspecified, uncomplicated
CPT/HCPCS: 81003; 71046; 99284; 96372; J1885; 93005

== ENCOUNTER 2024-06-09 12:26 | Emergency (ER) | payer OTHER ==
[2024-06-09 13:20] VITALS: RESP 18; TEMP 98
[2024-06-09] MEDS: KETOROLAC 15 MG/ML 1 ML VIAL IM STA (13:49)
[2024-06-09] MEDS: ORPHENADRINE 30 MG/ML 2 ML VIAL IM STA (13:50)
[2024-06-09] MEDS: LIDOCAINE 4% PATCH TOPICAL ONE (13:51)
[2024-06-09 14:19] LABS: Appearance,Urine Turbid (Clear); Bilirubin,Urine Negative (Negative); Blood,Urine Negative (Negative); Color,Urine Light Yellow; Glucose,Urine (UA) Negative (Negative); Ketones,Urine Negative (Negative); Leukocyte Esterase,Urine Negative (Negative); Mucus,Urine Rare /hpf; Nitrite,Urine Negative (Negative); Protein,Urine Trace (Negative); RBC,Urine <1 /hpf (0-5); Specific Gravity,Urine 1.029 (1.001-1.035); Squamous Epithelial Cell,Urine <1 /hpf (0-4); Urobilinogen,Urine <2.0 mg/dL (<2.0)
--- NOTE | 2024-06-09 14:19 | XR ---
EXAMINATION TYPE: XR lumbar spine 2 or 3V DATE OF EXAM: 06/09/2024 CLINICAL HISTORY: pain TECHNIQUE: Three views of the lumbar spine are submitted. COMPARISON: None. FINDINGS: There are 5 lumbar type vertebral bodies identified. The lumbar spine shows satisfactory alignment w ithout evidence of acute fracture or dislocation. Vertebral body heights are within normal limits. Disc spaces are within normal limits. The overlying soft tissue appears unremarkable. IMPRESSION: No acute fracture or dislocation is seen in the lumbar spine. [facility], , 06/09/2024 2:17 PM
--- NOTE | 2024-06-09 14:22 | XR ---
EXAMINATION TYPE: XR KUB DATE OF EXAM: 06/09/2024 COMPARISON: NONE HISTORY: Pain TECHNIQUE: Single supine KUB image of the abdomen is obtained FINDINGS: Small bowel demonstrates no evidence for dilatation or air fluid levels. Gas and fecal material is seen in throughout the colon. No convincing evidence for pneumoperitoneum. No unusual calcifications. The lung bases are clear. The osseous structures are intact. IMPRESSION: 1. Overall nonobstructive bowel gas pattern. 2. Mild colonic stool burden. [facility], , 06/09/2024 2:19 PM
--- NOTE | 2024-06-09 14:49 | ED ---
Back Pain HPI - General Chief Complaint: Back Pain/Injury Stated Complaint: lwr back pain Time Seen by Provider: 06/09/24 13:20 Source: patient Limitations: no limitations - History of Present Illness Initial Comments: 23-year-old male presenting with chief complaint of lower back pain. Pain is mainly on the left side. Ongoing for the last 4 to 5 days. No fall or injury. Patient does report that he works a fairly physical job. He is having no dysuria or hematuria. He does report constipation. No hematochezia or melena. No abdominal pain. No fevers or chills. No nausea or vomiting. No radiation of pain down the leg. No loss of bowel or bladder control or saddle paresthesia. - Related Data Home Medications Medication Instructions Recorded Confirmed No Known Home Medications 12/27/21 09/04/22 Allergies Allergy/AdvReac Type Severity Reaction Status Date / Time No Known Allergies Allergy Verified 06/09/24 13:20 Review of Systems ROS Statement: Those systems with pertinent positive or pertinent negative responses have been documented in the HPI. ROS Other: All systems not noted in ROS Statement are negative. Past Medical History Past Medical History: No Reported History Additional Past Medical History / Comment(s): hx two tendons injured left hand History of Any Multi-Drug Resistant Organisms: None Reported Past Surgical History: Orthopedic Surgery Additional Past Surgical History / Comment(s): RIGHT WRIST FRACTURE SURGERY. tendon surgery rt hand 08/04/21 with hardware Past Anesthesia/Blood Transfusion Reactions: No Reported Reaction Past Psychological History: ADD/ADHD Smoking Status: Current every day smoker Past Alcohol Use History: Occasional, Rare Past Drug Use History: Marijuana - Past Family History Mother Family Medical History: No Reported History General Exam Limitations: no limitations General appearance: alert, in no apparent distress Head exam: Present: atraumatic, normocephalic, normal inspection Eye exam: Present: normal appearance, EOMI. Absent: periorbital swelling Neck exam: Present: normal inspection. Absent: meningismus Respiratory exam: Present: normal lung sounds bilaterally. Absent: respiratory distress, wheezes, rales, rhonchi, stridor Cardiovascular Exam: Present: regular rate, normal rhythm, normal heart sounds. Absent: systolic murmur, diastolic murmur, rubs, gallop, clicks GI/Abdominal exam: Present: soft. Absent: distended, tenderness, guarding, rebound, rigid Extremities exam: Present: normal inspection Back exam: Present: normal inspection. Absent: tenderness Neurological exam: Present: alert, oriented X3 Psychiatric exam: Present: normal affect, normal mood Skin exam: Present: warm, dry, normal color Course Vital Signs 06/09/24 06/09/24 13:17 15:15 Temperature 98.0 F 98.0 F Pulse Rate 66 70 Respiratory 18 18 Rate Blood Pressure 132/78 126/76 O2 Sat by Pulse 100 100 Oximetry Medical Decision Making - Medical Decision Making Was pt. sent in by a medical professional or institution (, PA, NAIL TECH, urgent care, hospital, or penitentiary...) When possible be specific @ -No Did you speak to anyone other than the patient for history (EMS, parent, family, police, friend...)? What history was obtained from this source @ -No Did you review nursing and triage notes (agree or disagree)? Why? @ -I reviewed and agree with nursing and triage notes Were old charts reviewed (outside hosp., previous admission, EMS record, old EKG, old radiological studies, urgent care reports/EKG's, penitentiary records)? Report findings @ -No old charts were reviewed Differential Diagnosis (chest pain, altered mental status, abdominal pain women, abdominal pain men, vaginal bleeding, weakness, fever, dyspnea, syncope, headache, dizziness, GI bleed, back pain, seizure, CVA, palpatations, mental health, musculoskeletal)? @ - MDM Differential Back Pain: Strain, zoster, cauda equina syndrome, epidural abscess, vertebral osteomyelitis, discitis, fracture, subluxation, disc herniation, DJD, spinal stenosis, dissection, AAA, pancreatitis, peptic ulcer disease, pyelonephritis, kidney stone this is not meant to be an all-inclusive list. EKG interpreted by me (3pts min.). @ -As above X-rays interpreted by me (1pt min.). @ -X-ray shows overall nonobstructive bowel gas pattern. Mild colonic stool burden Lumbar x-ray shows no acute fracture or dislocation seen in the lumbar spine CT interpreted by me (1pt min.). @ -None done U/S interpreted by me (1pt. min.). @ -None done What testing was considered but not performed or refused? (CT, X-rays, U/S, labs)? Why? @ -None What meds were considered but not given or refused? Why? @ -None Did you discuss the management of the patient with other professionals (professionals i.e. , PA, NAIL TECH, lab, RT, psych nurse, social insurance adviser, call center nurse, teacher, sports development officer, dependency case manager)? Give summary @ -No Was smoking cessation discussed for >3mins.? @ -No Was critical care preformed (if so, how long)? @ -No Were there social determinants of health that impacted care today? How? (Homelessness, low income, unemployed, alcoholism, drug addiction, transportation, low edu. Level, literacy, decrease access to med. care, senior living, rehab)? @ -No Was there de-escalation of care discussed even if they declined (Discuss DNR or withdrawal of care, Hospice)? DNR status @ -No What co-morbidities impacted this encounter? (DM, HTN, Smoking, COPD, CAD, Cancer, CVA, ARF, Chemo, Hep., AIDS, mental health diagnosis, sleep apnea, morbid obesity)? @ -None Was patient admitted / discharged? Hospital course, mention meds given and route, prescriptions, significant lab abnormalities, going to OR and other pertinent info. @ -23-year-old male presenting with chief complaint of lower back pain. No red flag symptoms. He also complains of constipation. Physical examination are conducted. Urine shows no infectious process or bleeding. Constipation seen on KUB x-ray. No acute osseous process seen on lumbar spine x-ray. Patient is educated on today's findings and supportive management at home. Provided with magnesium citrate for constipation. Follow-up with PCP. Report back to ER with any new or worsening symptoms. Discussed return parameters and answered all questions. Patient conveyed verbal understanding and agreed to the plan. I discussed this case in detail with my attending Dr. Siddiqi Undiagnosed new problem with uncertain prognosis? @ -No Drug Therapy requiring intensive monitoring for toxicity (Heparin, Nitro, Insulin, Cardizem)? @ -No Were any procedures done? @ -No Diagnosis/symptom? @ -Back Pain, constipation Acute, or Chronic, or Acute on Chronic? @ -Acute Uncomplicated (without systemic symptoms) or Complicated (systemic symptoms)? @ -Uncomplicated Side effects of treatment? @ -No Exacerbation, Progression, or Severe Exacerbation? @ -No Poses a threat to life or bodily function? How? (Chest pain, USA, CA, pneumonia, PE, COPD, DKA, ARF, appy, cholecystitis, CVA, Diverticulitis, Homicidal, Suicidal, threat to staff... and all critical care pts) @ -Low likelihood - Lab Data Lab Results 06/09/24 Range/Units 13:56 Urine Color Light Yellow Urine Appearance Turbid (Clear) Urine pH 8.0 (5.0-8.0) Ur Specific [place] 1.029 (1.001-1.035) Urine Protein Trace H (Negative) Urine Glucose (UA) Negative (Negative) Urine Ketones Negative (Negative) Urine Blood Negative (Negative) Urine Nitrite Negative (Negative) Urine Bilirubin Negative (Negative) Urine Urobilinogen <2.0 (<2.0) mg/dL Ur Leukocyte Esterase Negative (Negative) Urine RBC <1 (0-5) /hpf Ur Squamous Epith Cells <1 (0-4) /hpf Urine Mucus Rare H (None) /hpf Disposition Clinical Impression: Constipation, Mechanical back pain Disposition: HOME SELF-CARE Condition: Good Instructions (If sedation given, give patient instructions): Constipation (ED), High Fiber Diet (ED), Acute Low Back Pain (ED) Additional Instructions: Follow-up with PCP. Report back to ER with any new or worsening symptoms. Is patient prescribed a controlled substance at d/c from ED?: No Referrals: Sam Byrnes MD [Primary Care Provider] - 1-2 days Time of Disposition: 14:49
[2024-06-09] MEDS: MAGNESIUM CITRATE 296 ML BOTTLE PO ONE (15:12)
[2024-06-09 15:17] VITALS: BP 126/76; PULSE 70
== END 2024-06-09 15:15 | disposition home or self-care (01) ==
LOC: EC 12:26
DX: K59.00 Constipation, unspecified (principal); M54.50 Low back pain, unspecified; F17.200 Nicotine dependence, unspecified, uncomplicated
CPT/HCPCS: 81001; 72100; 74018; 99284; 96372 ×2; J2360; J1885